=== PATIENT | male | born 1995 | race Caucasian/White ===

== ENCOUNTER 2017-02-11 15:30 | Emergency (ER) | payer BC ==
[~2017-02-11] VITALS: Ht 182.9 cm; Wt 74.8 kg
[~2017-02-11 15:30] MED LIST: NAPROSYN500 MG PO; ULTRAM50 MG PO
[2017-02-11 15:33] VITALS: BP 132/71
[2017-02-11] MEDS ORDERED: NAPROSYN500 MG PO (19:20)
== END 2017-02-11 19:47 | disposition home or self-care (01) ==
LOC: EME 15:30
DX: M79.641 Pain in right hand (principal)
CPT/HCPCS: 73130; 99281; 99283